=== PATIENT | female | born 1940 | race Caucasian/White ===

== ENCOUNTER → 2017-02-11 | Outpatient (CLI) | payer MEDICARE, OTHER ==
[~2017-02-11] MED LIST: ADVAIR HFA 115/1 INH INH; ALBUTEROL0.63 MG/3 INH; ASPIR-LOW81 MG PO; EVISTA60 MG PO; GLUCOPHAGE500 MG PO; LASIX TAB 20 MG20 MG PO; METOPROLOL SUCC25 MG PO; MULTIVITAMINS1 EAC1 PO; PREDNISONE 1 MG1 MG PO; SIMVASTATIN20 MG PO; SYNTHROID75 MCG PO; VALSARTAN-HCTZ1 EACH PO; VENTOLIN HFA 66.7 GM INH; VITAMIN B-121000 MC3 PO; ZITHROMAX250 MG PO
== END ==
LOC: HEART 5 11:36
DX: J44.9 Chronic obstructive pulmonary disease, unspecified (principal); R94.2 Abnormal results of pulmonary function studies; Z87.891 Personal history of nicotine dependence
CPT/HCPCS: 94060; 94729

== ENCOUNTER 2017-02-21 13:23 | Inpatient (IN) | payer MEDICARE, OTHER ==
[~2017-02-21] VITALS: Ht 165.1 cm; Wt 113.9 kg
[2017-02-21] MEDS ORDERED: ADVAIR HFA 115/1 INH INH (16:38)
[2017-02-21] MEDS ORDERED: SIMVASTATIN20 MG PO (16:51)
[2017-02-21] MEDS ORDERED: VENTOLIN HFA 66.7 GM INH (16:51)
[2017-02-21] MEDS ORDERED: SYNTHROID75 MCG PO (16:52)
[2017-02-21] MEDS ORDERED: VALSARTAN-HCTZ1 EACH PO (16:52)
[2017-02-21] MEDS ORDERED: GLUCOPHAGE500 MG PO (16:53)
[2017-02-21] MEDS ORDERED: METOPROLOL SUCC25 MG PO (16:54)
[2017-02-21] MEDS ORDERED: EVISTA60 MG PO (16:54)
[2017-02-21] MEDS ORDERED: LASIX TAB 20 MG20 MG PO (16:56)
[2017-02-21] MEDS ORDERED: ALBUTEROL0.63 MG/3 INH (16:57)
[2017-02-21] MEDS ORDERED: VITAMIN B-121000 MC3 PO (16:58)
[2017-02-21] MEDS ORDERED: ASPIR-LOW81 MG PO (17:12)
[2017-02-21] MEDS ORDERED: MULTIVITAMINS1 EAC1 PO (17:13)
[2017-02-21 18:08] LABS: HEMOGLOBIN 11.7 gm/dl (12.3-15.3); RED BLOOD COUNT 4.14 M/UL (4.00-5.10)
[2017-02-22 05:34] LABS: HEMOGLOBIN 11.5 gm/dl (12.3-15.3); RED BLOOD COUNT 4.16 M/UL (4.00-5.10); WHITE BLOOD COUNT 13.1 K/UL (4.5-11.0)
[2017-02-22 05:36] LABS: BUN/CREATININE RATIO 47 (0-10)
[2017-02-23 08:00] LABS: HEMOGLOBIN 10.9 gm/dl (12.3-15.3); RED BLOOD COUNT 3.93 M/UL (4.00-5.10); WHITE BLOOD COUNT 13.1 K/UL (4.5-11.0)
[2017-02-23 08:14] LABS: BUN/CREATININE RATIO 60 (0-10)
[2017-02-24 06:28] LABS: HEMOGLOBIN 11.7 gm/dl (12.3-15.3); RED BLOOD COUNT 4.22 M/UL (4.00-5.10); WHITE BLOOD COUNT 12.1 K/UL (4.5-11.0)
[2017-02-24 06:50] LABS: BUN/CREATININE RATIO 63 (0-10)
[2017-02-24] MEDS ORDERED: ZITHROMAX250 MG PO (15:56)
[2017-02-24] MEDS ORDERED: PREDNISONE 1 MG1 MG PO (15:58)
== END 2017-02-24 17:44 | disposition home or self-care (01) | DRG 189 ==
LOC: MED SURG 4 15:31 → M/S 02-23 10:48
PROVIDERS: Internal Medicine; ADMIT Family Medicine
DX: J96.21 Acute and chronic respiratory failure with hypoxia (principal); J18.9 Pneumonia, unspecified organism; J44.0 Chronic obstructive pulmonary disease with (acute) lower respiratory infection; E66.2 Morbid (severe) obesity with alveolar hypoventilation; Z68.42 Body mass index [BMI] 45.0-49.9, adult; I47.1 Supraventricular tachycardia; I50.9 Heart failure, unspecified; E11.9 Type 2 diabetes mellitus without complications; E78.5 Hyperlipidemia, unspecified; I10 Essential (primary) hypertension; E03.9 Hypothyroidism, unspecified; G62.9 Polyneuropathy, unspecified; Z99.81 Dependence on supplemental oxygen; Z90.710 Acquired absence of both cervix and uterus; Z79.82 Long term (current) use of aspirin; Z87.891 Personal history of nicotine dependence
CPT/HCPCS: 36415; 36600; 70450; 71020; 73610; 73630; 80048; 82803; 82962; 83880; 84443; 85025; 85027; 87040; 94640; 94660; 94664; 97116; 97530; J0456; J0696; J1650; J2920; J2930; J7030

== ENCOUNTER → 2017-05-06 | Outpatient (CLI) | payer MEDICARE, OTHER | LOC: US 08:00 | DX: R10.11 Right upper quadrant pain (principal); K82.8 Other specified diseases of gallbladder; K76.0 Fatty (change of) liver, not elsewhere classified; N28.1 Cyst of kidney, acquired | CPT/HCPCS: 76705 ==

== ENCOUNTER → 2021-11-14 | Outpatient (CLI) | payer MEDICARE, OTHER ==
[~2021-11-14] MED LIST changes: +ALBUTEROL2.5 MG/3 M INH; +AMOX TR-K CLV1 EAC4 PO; +DILTIAZEM 24HR120 M1 PO; +JANUVIA100 MG PO; +KEFLEX CAP 500500 MG PO; +LIPITOR TAB 1010 MG PO; +LOSARTAN-HCTZ1 EAC2 PO; +OXYBUTYNIN CHLO10 MG PO
== END ==
LOC: KOH-I 15:41
DX: R05.9 Cough, unspecified (principal); J90 Pleural effusion, not elsewhere classified
CPT/HCPCS: 71046

== ENCOUNTER 2022-03-25 20:02 | Emergency (ER) | payer MEDICARE, OTHER ==
[2022-03-25 20:42] LABS: HEMOGLOBIN 12.4 gm/dl (12.3-15.3); RED BLOOD COUNT 4.41 M/UL (4.00-5.10)
[2022-03-25 21:09] LABS: BUN/CREATININE RATIO 39 (0-10)
== END 2022-03-25 23:26 | disposition home or self-care (01) ==
LOC: ER1 20:02
PROVIDERS: Family Medicine
DX: J96.12 Chronic respiratory failure with hypercapnia (principal); J96.11 Chronic respiratory failure with hypoxia; E11.65 Type 2 diabetes mellitus with hyperglycemia; N28.9 Disorder of kidney and ureter, unspecified; J44.9 Chronic obstructive pulmonary disease, unspecified; Z79.84 Long term (current) use of oral hypoglycemic drugs
CPT/HCPCS: 36600; 71045; 80053; 81001; 82550; 82553; 82803; 83605; 83690; 83735; 84439; 84443; 84484; 85025; 85610; 93005; 94760; 99285